=== PATIENT | male | born 1955 | race Caucasian/White ===

== ENCOUNTER → 2016-08-23 | Outpatient (CLI) | payer OTHER ==
[~2016-08-23] MED LIST: ATARAX PO; AUGMENTIN875 MG PO; AZOR 10-40 MG1 UDTAB PO; COREG3.125 MG PO; COREG6.25 MG PO; GABAPENTIN300 M2 PO; MELOXICAM15 MG PO; MULTI VITAMIN1 EACH PO; MULTIVITAMINS1 EAC3 PO; NEURONTIN300 MG PO; POTASSIUM CHLO20 ME2 PO
--- NOTE | ~2016-08-23 | CT55 ---
[facility] A Service of [facility] & [facility] RADIOLOGY TEXT RESULTS PATIENT: LEXUS DUGAN [facility] 54 UNIT #: [id number] AGE: [address]: Napoleon Fowler MD SEX: M ORDER DR: [id number] [facility] [address] [place], [place] [address] [id number] O MR#: [id number] Acc #: [id number] NAME: LEXUS DUGAN : 1955 SEX: M STUDY DATE/TIME: 08/23/2016 8:34 UNIT: [facility] ROOM: STUDY DESCRIPTION: CT Chest W Con Attending Physician: Napoleon Fowler M.D. Referring Physician: Napoleon Fowler M.D. Ordering Physician: Napoleon Fowler M.D. Primary Care Physician: Raffy Berkowitz M.D. MEDICAL IMAGING REPORT This report is preliminary unless electronic signature is present EXAM CT chest with contrast HISTORY Followup lung mass, incidental mass noted on the CT angiogram, 02/18/[address] angiogram chest 02/18/[address] chest without contrast 06/04/2016. The CT exam was performed with one or more of the following radiation dose reduction techniques: automatic exposure control, adjustment of mA and/or kV according to patient size, and iterative reconstruction. FINDINGS Axial images performed through the chest following IV contrast. Sagittal and coronal reconstructed images reviewed at a workstation. Examination demonstrates a right upper lobe cavitary mass measuring about 2.5 x 3.7 x 3.8 cm in greatest transverse dimensions. Air-fluid level noted within the mass. There is some surrounding scarring and fibrosis. The mass is not appreciably changed in size when compared to the patient's study from February 2016. There may be some increase in air. Differential would include both infectious, inflammatory and neoplastic processes though stability would make a neoplastic process less likely. There is background emphysema. There is a stable noncalcified nodule right middle lobe measuring about 5 mm. There is a small calcified granuloma left lower lobe. Small lung cyst also noted in the periphery of the left lower lobe measuring about 2.7 cm. Mild tracheobronchomegaly. Borderline dilatation of the aortic root at 4 cm. No dissection. Coronary artery calcifications noted. Pulmonary arteries unremarkable. [facility]. [facility] A Service of [facility] RADIOLOGY TEXT RESULTS PATIENT: LEXUS DUGAN LOCATION: [facility] : 53 UNIT #: [id number] AGE: [address]: Napoleon Fowler MD SEX: M ORDER DR: There are densely calcified left hilar lymph nodes compatible with prior granulomas disease. Upper abdomen remarkable for fatty liver. The adrenal glands unremarkable. There is a small cyst upper pole left kidney. Thoracic spine, thoracic inlet unremarkable. IMPRESSION 1. Right upper lobe cavitary lesion along the posterior aspect of the right upper lobe and extending towards the pleural space. The mass is not significantly changed in size, though there does appear to be more air or increasing central cavitation. Stability would favor an inflammatory or less likely infectious process. Neoplasm considered unlikely given the stability since February 2016. 2. Moderate centrilobular emphysema. 3. Stable noncalcified right middle lobe nodule. Dictated by... Dontae Cardenas M.D. THIS IS AN ELECTRONICALLY VERIFIED REPORT Dontae Cardenas M.D. at 08/23/2016 4:56 PM Mio TD: 08/23/2016 11:43 JOB #: [id number] MEDICAL IMAGING REPORT Page 1 of 1 COPY
[2016-08-23 10:11] LABS: POC - CREATININE 0.85 mg/dL (0.64-1.27); POC - GFR >60.0 mL/min (>60)
== END | disposition home or self-care (01) ==
LOC: CCAT 07:38
PROVIDERS: Internal Medicine
DX: R91.8 Other nonspecific abnormal finding of lung field (principal); J43.2 Centrilobular emphysema
CPT/HCPCS: 71260; 82565; Q9967

== ENCOUNTER → 2016-09-08 | Outpatient (CLI) | payer OTHER ==
--- NOTE | ~2016-09-08 | CR94 ---
[facility] A Service of [facility] RADIOLOGY TEXT RESULTS PATIENT: LEXUS DUGAN LOCATION: [facility] : 53 UNIT #: [id number] AGE: [address]: Raffy Berkowitz MD SEX: M ORDER DR: [id number] [address] [address] [id number] O MR#: [id number] Acc #: [id number] NAME: LEXUS DUGAN : 1955 SEX: M STUDY DATE/TIME: 09/08/2016 3:28 UNIT: [facility] ROOM: STUDY DESCRIPTION: CR Elbow Min 3 Views Rt Attending Physician: Raffy Berkowitz M.D. Ordering Physician: Raffy Berkowitz M.D. Primary Care Physician: Raffy Berkowitz M.D. MEDICAL IMAGING REPORT This report is preliminary unless electronic signature is present EXAMINATION 3 views of the right elbow. DATE 09/08/2016 HISTORY Right elbow pain and swelling posteriorly for 3 weeks. No known injury. Olecranon bursitis. COMPARISON None. FINDINGS There is marked posterior elbow soft tissue thickening up to 2 cm thickness. Posterior olecranon spur is present. There is mild spurring of the radial head. No acute fracture or joint dislocation is seen. IMPRESSION 1. Degenerative spurring of the radial head and the posterior olecranon. 2. Marked posterior elbow soft tissue swelling in keeping with his stated history of olecranon bursitis. 3. No acute osseous abnormality. Dictated by... Kera Interiano M.D. THIS IS AN ELECTRONICALLY VERIFIED REPORT Kera Interiano M.D. at 09/08/2016 10:05 PM YASH/yevgeniy TD: 09/08/2016 09:58 JOB #: [id number] [facility] A Service of [facility] RADIOLOGY TEXT RESULTS PATIENT: LEXUS DUGAN LOCATION: [facility] : 53 UNIT #: [id number] AGE: [address]: Raffy Berkowitz MD SEX: M ORDER DR: MEDICAL IMAGING REPORT Page 1 of 1 COPY
== END | disposition home or self-care (01) ==
LOC: CRAD 03:23
DX: M71.521 Other bursitis, not elsewhere classified, right elbow (principal); M19.021 Primary osteoarthritis, right elbow; M79.89 Other specified soft tissue disorders
CPT/HCPCS: 73080

== ENCOUNTER 2016-09-15 08:25 | Emergency (ER) | payer OTHER ==
[~2016-09-15 08:25] MED LIST changes: -COREG3.125 MG PO; -GABAPENTIN300 M2 PO; -MELOXICAM15 MG PO; -MULTIVITAMINS1 EAC3 PO; -POTASSIUM CHLO20 ME2 PO
== END 2016-09-15 09:10 | disposition home or self-care (01) ==
LOC: CFTX 08:25 → CED 08:25 → CFTX 08:52
DX: M70.21 Olecranon bursitis, right elbow (principal); I11.0 Hypertensive heart disease with heart failure; I50.9 Heart failure, unspecified; F17.290 Nicotine dependence, other tobacco product, uncomplicated
CPT/HCPCS: 99282

== ENCOUNTER 2016-09-20 22:26 | Emergency (ER) | payer OTHER ==
--- NOTE | ~2016-09-20 | EKG ---
PATIENT: LEXUS DUGAN UNIT #: [id number] Ventricular Rate: 81 BPM Atrial Rate: 81 BPM P-R Interval: 136 ms QRS Duration: 94 ms Q-T Interval: 426 ms QTC Calculation(Bezet): 494 ms P [place]: 78 degrees Calculated R [place]: 78 degrees Calculated T [place]: 69 degrees Diagnosis Line: Normal sinus rhythm Diagnosis Line: Possible Left atrial enlargement Diagnosis Line: Prolonged QT Diagnosis Line: Abnormal ECG Diagnosis Line: When compared with ECG of 20-FEB-2016 05:57, Diagnosis Line: No significant change was found Diagnosis Line: Confirmed by SKY DO MD ([id number]) on Diagnosis Line: 09/21/2016 1:32:15 PM INTERPRETING MD: ERNESTINA VARGAS
--- NOTE | ~2016-09-20 | CR72 ---
[facility] A Service of [facility] & [facility] RADIOLOGY TEXT RESULTS PATIENT: LEXUS DUGAN LOCATION: [facility] : 54 UNIT #: [id number] AGE: [address]: JOEL Huerta Doctor SEX: M ORDER DR: [id number] [facility] [address] [place], [place] [address] [id number] E MR#: [id number] Acc #: [id number] NAME: LEXUS DUGAN : 1955 SEX: M STUDY DATE/TIME: 09/20/2016 22:53 UNIT: [facility] ROOM: STUDY DESCRIPTION: CR Chest Single View Portable Attending Physician: Er Doctor Bradley Ordering Physician: Ed Jero Pham M.D. Primary Care Physician: Raffy Berkowitz M.D. MEDICAL IMAGING REPORT This report is preliminary unless electronic signature is present EXAM Portable chest 09/20/2016 at 22:53 INDICATION Shortness of air tonight. Lung mass. FINDINGS AP portable chest compared with 02/17/2016 as well as chest CT from 08/23/2016. Cardiac and mediastinal contours are normal. Granulomatous calcification noted in the left hilum. There is a small pulmonary cyst at the left base. There is a partially obscured cavitary lesion in the right upper lobe which is seen on prior imaging. No pneumothorax. IMPRESSION No acute findings in the chest. Patient has a known cavitary lesion in the right upper lobe better seen by the patient's prior CT. This partially obscured on the current study. No new findings in the chest. Dictated by... Blake Alexander Jr., M.D. THIS IS AN ELECTRONICALLY VERIFIED REPORT Blake Alexander Jr., M.D. at 09/21/2016 6:01 AM EMILY/marv TD: 09/21/2016 03:46 JOB #: [id number] MEDICAL IMAGING REPORT Page 1 of 1 COPY
== END 2016-09-21 00:03 | disposition left against medical advice (07) ==
LOC: CED 22:26
DX: Z53.21 Procedure and treatment not carried out due to patient leaving prior to being seen by health care provider (principal); Z88.0 Allergy status to penicillin
CPT/HCPCS: 71010

== ENCOUNTER 2016-10-18 19:29 | Emergency (ER) | payer OTHER ==
--- NOTE | ~2016-10-18 | CR72 ---
[facility] A Service of [facility] & [facility] RADIOLOGY TEXT RESULTS PATIENT: LEXUS DUGAN LOCATION: [facility] : 53 UNIT #: [id number] AGE: [address]: Rosangela Pickard MD SEX: M ORDER DR: [id number] [facility] [address] [place], [place] [address] [id number] E MR#: [id number] Acc #: [id number] NAME: LEXUS DUGAN : 1955 SEX: M STUDY DATE/TIME: 10/18/2016 20:44 UNIT: [facility] ROOM: STUDY DESCRIPTION: CR Chest Single View Portable Attending Physician: Rosangela Pickard M.D. Ordering Physician: Rosangela Pickard M.D. Primary Care Physician: Raffy Berkowitz M.D. MEDICAL IMAGING REPORT This report is preliminary unless electronic signature is present EXAM Portable chest 10/18. INDICATION Shortness of air, weakness, nausea and vomiting for 1 week. History of smoking. FINDINGS AP portable chest compared with 09/21/16. Cardiac and mediastinal contours are normal. Granulomatous calcifications noted in the lungs and left hilum. There is emphysema. No acute infiltrates. No pneumothorax. IMPRESSION Emphysema and old granulomatous disease. No acute findings in the chest. Dictated by... Blake Alexander Jr., M.D. THIS IS AN ELECTRONICALLY VERIFIED REPORT Blake Alexander Jr., M.D. at 10/19/2016 10:05 AM EMILY/brian TD: 10/19/2016 08:42 JOB #: [id number] MEDICAL IMAGING REPORT Page 1 of 1 COPY
--- NOTE | ~2016-10-18 | EKG ---
PATIENT: LEXUS DUGAN UNIT #: [id number] Ventricular Rate: 74 BPM Atrial Rate: 74 BPM P-R Interval: 148 ms QRS Duration: 92 ms Q-T Interval: 426 ms QTC Calculation(Bezet): 472 ms P [place]: 82 degrees Calculated R [place]: 85 degrees Calculated T [place]: 74 degrees Diagnosis Line: Normal sinus rhythm Diagnosis Line: Normal ECG Diagnosis Line: When compared with ECG of 20-SEP-2016 22:27, Diagnosis Line: No significant change was found Diagnosis Line: Confirmed by KT SCHROEDER MD ([id number]) on Diagnosis Line: 10/19/2016 9:13:06 PM INTERPRETING MD: BABAK
[2016-10-18 20:18] LABS: URINE SOURCE CLEAN CATCH
[2016-10-18 20:28] LABS: URINE APPEARANCE CLEAR; URINE BILIRUBIN NEG (NEG); URINE BLOOD NEG (NEG); URINE COLOR YELLOW; URINE GLUCOSE NEG (NEG); URINE KETONE NEG (NEG); URINE LEUKOCYTE ESTERASE NEG (NEG); URINE NITRATE NEG (NEG); URINE PH 6.5 (5-8); URINE PROTEIN NEG (NEG); URINE SPECIFIC GRAVITY 1.007 (1.003-1.035)
[2016-10-18 20:29] LABS: BASOPHIL% 0.4 % (0-2.5); EOSINOPHIL% 0.7 % (0.0-7.0); HEMATOCRIT 35.8 % (38.0-50.0); LYMPHOCYTE# 2.6 X10e3 (1.0-3.5); LYMPHOCYTE% 59.3 % (17.0-45.0); MEAN CELL VOLUME 99.1 FL (83-96); MEAN CORPUSCULAR HEMOGLOBIN 33.2 PG (28-34); MEAN CORPUSCULAR HGB CONC 33.6 g/dL (30-36); MONOCYTE# 0.4 X10e3 (0-1.0); MONOCYTE% 10.2 % (3.0-12.0); NEUTROPHIL# 1.3 X10e3 (1.5-7.1); NEUTROPHIL% 29.4 % (40-75); PLATELET COUNT 159 X10e3 (140-420); RED BLOOD COUNT 3.61 X10e (3.90-5.60); WHITE BLOOD COUNT 4.4 X10e3 (4.0-10.5)
[2016-10-18 20:31] LABS: DIFF IND YES
[2016-10-18 20:41] LABS: AMPHETAMINE NEG (NEG); BARBITURATES NEG (NEG); BENZODIAZEPINES NEG (NEG); COCAINE NEG (NEG); MARIJUANA NEG (NEG); OPIATES NEG (NEG); TRICYCLIC ANTIDEPRESSANTS NEG (NEG); U METHADONE NEG (NEG)
[2016-10-18 20:44] LABS: PLATELET ESTIMATE NORMAL (NORMAL); RBC NORMAL YES
[2016-10-18 20:47] LABS: CULTURE INDICATED? NO
[2016-10-18 20:48] LABS: ALBUMIN SERUM 3.7 g/dL (3.5-5.0); BILIRUBIN, DIRECT 0.1 mg/dL (0.0-0.2); BILIRUBIN,INDIRECT 0.6 mg/dL (0.0-0.9); BILIRUBIN,TOTAL 0.7 mg/dL (0.2-2.0); BUN/CREATININE RATIO 8.75; CALCIUM SERUM 8.3 mg/dL (8.4-10.2); CREATININE SERUM 0.8 mg/dL (0.6-1.4); GLOM FILT RATE Estimated 95.8 mL/min (>60); PROTEIN TOTAL SERUM 7.1 g/dL (6.0-8.3)
[2016-10-18 21:06] LABS: POTASSIUM 2.9 mmol/L (3.5-5.1)
[2016-10-18 21:59] LABS: POC - CKMB <1.0 ng/mL (0.0-7.9); POC - TROPONIN <0.05 ng/mL (<=0.05)
== END 2016-10-18 22:00 | disposition home or self-care (01) ==
LOC: CED 19:29
PROVIDERS: Emergency Medicine
DX: N39.0 Urinary tract infection, site not specified (principal); R41.82 Altered mental status, unspecified; I10 Essential (primary) hypertension; Z88.0 Allergy status to penicillin
CPT/HCPCS: 36415; 71010; 80048; 80076; 80307; 81003; 82150; 82553; 83690; 84484; 85025; 93005; 96361; 96374; 99285; G0480; J2405

== ENCOUNTER 2016-11-24 18:22 | Emergency (ER) | payer OTHER ==
[~2016-11-24] VITALS: Ht 180.3 cm; Wt 61.2 kg
--- NOTE | ~2016-11-24 | EKG ---
PATIENT: LEXUS DUGAN UNIT #: [id number] Ventricular Rate: 95 BPM Atrial Rate: 95 BPM P-R Interval: 98 ms QRS Duration: 86 ms Q-T Interval: 396 ms QTC Calculation(Bezet): 497 ms P [place]: 49 degrees Calculated R [place]: 74 degrees Calculated T [place]: 77 degrees Diagnosis Line: Sinus rhythm with short DC Diagnosis Line: Otherwise normal ECG Diagnosis Line: When compared with ECG of 18-OCT-2016 19:57, Diagnosis Line: DC interval has decreased Diagnosis Line: Confirmed by SKY DO MD ([id number]) on Diagnosis Line: 11/26/2016 7:30:01 AM INTERPRETING MD: ERNESTINA VARGAS
--- NOTE | ~2016-11-24 | CR72 ---
[facility] A Service of [facility] & [facility] RADIOLOGY TEXT RESULTS PATIENT: LEXUS DUGAN LOCATION: [facility] : 53 UNIT #: [id number] AGE: [address]: Davonte Rosario MD SEX: M ORDER DR: [id number] [facility] [address] [place], [place] [address] [id number] E MR#: [id number] Acc #: [id number] NAME: LEXUS DUGAN : 1955 SEX: M STUDY DATE/TIME: 11/24/2016 20:00 UNIT: [facility] ROOM: STUDY DESCRIPTION: CR Chest Single View Portable Attending Physician: Davonte Rosario M.D. Ordering Physician: Blake Dozier M.D. Primary Care Physician: Raffy Berkowitz M.D. MEDICAL IMAGING REPORT This report is preliminary unless electronic signature is present EXAM Portable chest. HISTORY Shortness of air today. FINDINGS Cardiac size and pulmonary vascularity are normal. Bilateral emphysema. Mild scattered linear scarring in the right upper lobe. Calcified left hilar node. IMPRESSION Emphysema. No active disease. Dictated by... Enrike Serrano M.D. THIS IS AN ELECTRONICALLY VERIFIED REPORT Enrike Serrano M.D. at 11/25/2016 11:03 PM DFKrystal/yevgeniy TD: 11/25/2016 05:54 JOB #: [id number] MEDICAL IMAGING REPORT Page 1 of 1 COPY
[2016-11-24 19:32] LABS: URINE SOURCE CLEAN CATCH
[2016-11-24 19:37] LABS: BASOPHIL% 0.3 % (0-2.5); HEMATOCRIT 35.6 % (38.0-50.0); HEMOGLOBIN 12.1 gm/dL (13.0-16.0); LYMPHOCYTE# 0.6 X10e3 (1.0-3.5); LYMPHOCYTE% 9.5 % (17.0-45.0); MEAN CELL VOLUME 96.5 FL (83-96); MEAN CORPUSCULAR HEMOGLOBIN 32.9 PG (28-34); MEAN CORPUSCULAR HGB CONC 34.1 g/dL (30-36); MEAN PLATELET VOLUME 8.1 FL (6.5-11.5); MONOCYTE# 0.6 X10e3 (0-1.0); MONOCYTE% 10.9 % (3.0-12.0); NEUTROPHIL# 4.6 X10e3 (1.5-7.1); NEUTROPHIL% 79.3 % (40-75); PLATELET COUNT 175 X10e3 (140-420); RED BLOOD COUNT 3.69 X10e (3.90-5.60); RED CELL DISTRIBUTION WIDTH 14.5 % (11.0-15.5); WHITE BLOOD COUNT 5.8 X10e3 (4.0-10.5)
[2016-11-24 19:38] LABS: DIFF IND NO
[2016-11-24 19:42] LABS: URINE APPEARANCE CLEAR; URINE BLOOD NEG (NEG); URINE COLOR DK YELLOW; URINE GLUCOSE NEG (NEG); URINE KETONE 1+ (NEG); URINE LEUKOCYTE ESTERASE 1+ (NEG); URINE NITRATE POS (NEG); URINE PROTEIN 1+ (NEG); URINE SPECIFIC GRAVITY 1.025 (1.003-1.035); URINE UROBILINOGEN 0.2 MG/DL (NEG)
[2016-11-24 19:44] LABS: URINE BACTERIA AUWI NEG (NEGATIVE); URINE SQUAMOUS EPITHELIAL CELL OCC /[HPF]
[2016-11-24 19:51] LABS: POC - CKMB <1.0 ng/mL (0.0-7.9); POC - TROPONIN <0.05 ng/mL (<=0.05)
[2016-11-24 19:51] LABS: URINE BILIRUBIN NEG (NEG)
[2016-11-24 19:56] LABS: ALBUMIN SERUM 4.1 g/dL (3.5-5.0); ALKALINE PHOSPHATASE 148 U/L (32-92); ALT (SGPT) 72 U/L (10-40); AST (SGOT) 248 U/L (10-42); BILIRUBIN, DIRECT 0.7 mg/dL (0.0-0.2); BILIRUBIN,INDIRECT 1.7 mg/dL (0.0-0.9); BILIRUBIN,TOTAL 2.4 mg/dL (0.2-2.0); BLOOD UREA NITROGEN 10 mg/dL (9-23); BUN/CREATININE RATIO 7.69; CALCIUM SERUM 8.2 mg/dL (8.4-10.2); CARBON DIOXIDE 24 mmol/L (22-31); CHLORIDE 100 mmol/L (100-111); CREATININE SERUM 1.3 mg/dL (0.6-1.4); GLOM FILT RATE Estimated 58.5 mL/min (>60); GLUCOSE FASTING 108 mg/dL (70-110); PROTEIN TOTAL SERUM 7.9 g/dL (6.0-8.3); SODIUM 140 mmol/L (135-145)
[2016-11-24 19:57] LABS: ALCOHOL BLOOD <5 mg/dL ([, 0]); POTASSIUM 2.8 mmol/L (3.5-5.1)
[2016-11-24 20:13] LABS: BARBITURATES NEG (NEG); TRICYCLIC ANTIDEPRESSANTS NEG (NEG); U METHADONE NEG (NEG)
[2016-11-24] MEDS ORDERED: GABAPENTIN300 M2 PO (22:54)
[2016-11-24] MEDS ORDERED: COREG3.125 MG PO (22:54)
[2016-11-24] MEDS ORDERED: MULTI VITAMIN1 EACH PO (22:55)
== END 2016-11-25 05:45 | disposition home or self-care (01) ==
LOC: CED 18:22
PROVIDERS: Emergency Medicine
DX: E87.6 Hypokalemia (principal); F10.239 Alcohol dependence with withdrawal, unspecified; I10 Essential (primary) hypertension; I48.91 Unspecified atrial fibrillation; F17.200 Nicotine dependence, unspecified, uncomplicated; Z88.0 Allergy status to penicillin; Z79.899 Other long term (current) drug therapy
CPT/HCPCS: 36415; 71010; 80048; 80076; 80307; 81003; 82553; 84484; 85025; 93005; 96374; 99285; G0480; J3360

== ENCOUNTER 2016-12-12 12:32 | Emergency (ER) | payer OTHER ==
[~2016-12-12] VITALS: Ht 180.3 cm; Wt 63.4 kg
--- NOTE | ~2016-12-12 | HP ---
Unit #: [id number] #: [id number] Patient: LEXUS DUGAN [id number] [address] [place], [place] [address] [id number] I MR#: [id number] NAME: LEXUS DUGAN ROOM: [address] Age: 61 Sex: M Admission Date: 12/12/2016 : 1955 Attending Physician: Luz Jeffrey M.D. Primary Care Physician: Raffy Berkowitz M.D. HISTORY AND PHYSICAL CHIEF COMPLAINT Weakness worsening today. HISTORY OF PRESENT ILLNESS The patient is a 61-year-old male with a past medical history of alcohol abuse, paroxysmal atrial fibrillation, right upper lobe mass, hypertension, and neuropathy, who presented to the emergency department for evaluation of the above. The patient states that he has had a two-week history of increasing generalized weakness. He states that he fell today when he was standing up from the toilet. He states that he felt somewhat lightheaded. He denies any fever, no chest pain, and no cough or cold symptoms. He states that he has had diarrhea. He reports one bout of nonbloody diarrhea within the past 24 hours. He also noticed blood in his urine. In the emergency department, initial pulse and blood pressure were 86 and 143/103, respectively. CT of the head was done and showed nothing acute. Chest x-ray showed nothing acute. Urinalysis showed findings concerning for urinary tract infection. He is a daily drinker. He received a rally pack, as well as 50 mg of Librium in the emergency department. Additionally, he received a 500 mL normal saline bolus, as well as a gram of Rocephin. He is being admitted to [facility] for evaluation and further treatment. PAST MEDICAL HISTORY 1. Admission to [facility] February 16-2015, for syncope. Per the Discharge Summary, he was seen in consultation by Cardiology. He was noted to have atrial fibrillation with rapid ventricular response and was started on sotalol. He also was found to have a lung mass. He underwent bronchoscopy with no endobronchial lesion seen. He was discharged home on Augmentin and was supposed to follow up as an outpatient. Specifically, he was to get a CT of the chest. It appears that he did have a CT of the chest on August 23, 2016, that showed right upper lobe cavitary lesion not significantly changed in size favoring inflammatory or less likely infectious process. Neoplasm was considered unlikely. 2. Lung mass followed by Dr. Fowler with most recent CT of the chest on August 23 with results as noted above. 3. Paroxysmal atrial fibrillation maintained on sotalol, followed by Dr. Perkins. 4. Hypertension. 5. Neuropathy. Unit #: [id number] #: [id number] Patient: LEXUS DUGAN PAST SURGICAL HISTORY 1. Bronchoscopy. 2. Cardiac catheterization (no records). 3. Toe surgery. SOCIAL HISTORY The patient is a daily drinker. He used to drink mixed drinks daily, but he states that he has cut back and now typically drinks several beers daily. He is a former smoker. He currently smokes e-cigarettes. He lives with his grandchildren. He has a cane. FAMILY HISTORY Notable for his dad having stomach malignancy. ALLERGIES Penicillin. HOME MEDICATIONS 1. Potassium 20 mEq daily. 2. Coreg 3.125 mg twice daily. 3. Meloxicam 15 mg daily. 4. Multivitamin daily. 5. Gabapentin 300 mg twice daily. REVIEW OF SYSTEMS A complete review of systems is negative except as indicated in the History of Present Illness. PHYSICAL EXAMINATION VITAL SIGNS: Temperature is 97.4, pulse 86, respirations 18, blood pressure 143/103, and oxygen saturation 98% on room air. GENERAL: Patient is an male who is sleeping but wakes to voice. HEENT: Head is atraumatic. Mucous membranes are moist. NECK: Supple. Trachea is midline. CARDIOVASCULAR: Regular rate and rhythm. LUNGS: Clear to auscultation bilaterally with no increased work of breathing. ABDOMEN: Soft and nontender with bowel sounds present in all four quadrants. EXTREMITIES: Nontender with no pedal edema. NEUROLOGIC: Patient is sleeping but wakes to voice. He is oriented x3. He follows commands. He is moving all extremities. PSYCHIATRIC: Mood and affect are normal. Patient is cooperative. SKIN: Skin of examined areas is warm and dry. DIAGNOSTIC STUDIES LABORATORY: Complete blood count notable for hemoglobin and hematocrit of 10.9 and 32.1, respectively, MCV is 98.1, and RDW is 16. Urinalysis notable for 1+ leukocyte esterase, positive nitrite, 2+ protein, enumerable red blood cells, 3+ blood, 5-10 white blood cells, and negative for bacteria. INR is 1.4. Ammonia level is 27. Lactic acid is 2.2. Comprehensive metabolic panel notable for calcium of 8, AST and ALT are 351 and 76, respectively, and alkaline phosphatase is 170. Troponin is less than 0.05. IMAGING: Chest x-ray shows nothing acute. CT of the head shows nothing acute. Unit #: [id number] #: [id number] Patient: LEXUS DUGAN CARDIOLOGY: EKG shows normal sinus rhythm with a rate of 80 beats per minute. ASSESSMENT The patient is a 61-year-old male with: 1. Altered mental status. The patient was somewhat confused initially. However, at the time of my evaluation he is oriented x3. 2. General weakness. 3. Syncope. 4. Urinary tract infection. There are no urine cultures in [facility] for review. He received Rocephin in the emergency department. 5. Microcytic anemia. The patient's hemoglobin was 12.1 on November 24, 2016. It is 10.9 today. 6. Transaminitis likely secondary to alcohol abuse. 7. Alcohol abuse. The patient received a rally pack in the emergency department, as well as Librium. 8. Paroxysmal atrial fibrillation. He was discharged home on sotalol. He appears that he is now taking Coreg. He is currently rate controlled. He is not on chronic anticoagulation. 9. Right upper lobe mass demonstrating stability on most recent CT (August 23, 2016), followed by Dr. Fowler. 10. Hypertension. 11. Neuropathy. 12. Former smoker. PLAN 1. Admit for observation to intermediate level. 2. Healthy-heart diet if passes bedside swallow. 3. TSH, B12, and folate. 4. Neuro checks. 5. Bedrest. 6. Fall precautions. 7. PT/OT to evaluate and treat. 8. A 2D echo if not done within the past year. 9. Serial cardiac enzymes. 10. Orthostatics every shift. 11. Blood cultures x2. 12. Urine culture and sensitivity on urine in the lab. 13. Rocephin 1 gram IV daily pending results of urine culture. 14. Alcohol withdrawal protocol. 15. Check magnesium level. 16. Librium 25 mg p.o. q.6 hours. 17. manager manufacturing/social work consult regarding alcohol abuse. 18. Repeat labs in the morning including INR and magnesium. 19. Potassium/magnesium protocol. 20. SCDs for DVT prophylaxis. 21. Additional workup and consultants based on above. 1. Dictated by Luz Jeffrey M.D. AW/kristi TD: 12/12/2016 17:42 JOB #: [id number] Unit #: [id number] #: [id number] Patient: LEXUS DUGAN HISTORY AND PHYSICAL Page 1 of 1 X Luz Jeffrey MD X HISTORY AND PHYSICAL
--- NOTE | ~2016-12-12 | EKG ---
PATIENT: LEXUS DUGAN UNIT #: [id number] Ventricular Rate: 80 BPM Atrial Rate: 80 BPM P-R Interval: 138 ms QRS Duration: 86 ms Q-T Interval: 418 ms QTC Calculation(Bezet): 482 ms P [place]: 65 degrees Calculated R [place]: 74 degrees Calculated T [place]: 74 degrees Diagnosis Line: Normal sinus rhythm Diagnosis Line: Possible Left atrial enlargement Diagnosis Line: Prolonged QT Diagnosis Line: Abnormal ECG Diagnosis Line: When compared with ECG of 24-NOV-2016 19:31, Diagnosis Line: HI interval has increased Diagnosis Line: Confirmed by GABINO BUSTOS MD ([id number]) on 12/14/2016 Diagnosis Line: 10:53:09 PM INTERPRETING MD: JULI VARGAS
--- NOTE | ~2016-12-12 | CT71 ---
[facility] A Service of [facility] RADIOLOGY TEXT RESULTS PATIENT: LEXUS DUGAN LOCATION: [facility] 564-01 : 53 UNIT #: [id number] AGE: [address]: Adonis Figueroa MD SEX: M ORDER DR: [id number] [address] [address] [id number] E MR#: [id number] Acc #: [id number] NAME: LEXUS DUGAN : 1955 SEX: M STUDY DATE/TIME: 12/12/2016 13:19 UNIT: [facility] ROOM: STUDY DESCRIPTION: CT Head Wo Contrast Attending Physician: Oleksandr Valenzuela M.D. Ordering Physician: Oleksandr Valenzuela M.D. Primary Care Physician: Raffy Berkowitz M.D. MEDICAL IMAGING REPORT This report is preliminary unless electronic signature is present EXAM CT head without contrast INDICATION Weakness and confusion today. PROCEDURE Unenhanced CT head. This CT examination was performed with one or more of the following radiation dose reduction techniques: automatic exposure control, adjustment of mA and/or kV according to patient size, and iterative reconstruction. COMPARISON None. FINDINGS No acute hemorrhage, abnormal mass effect, extraaxial fluid collection or hydrocephalus. No depressed calvarial fracture. The paranasal sinuses and mastoid air cells are clear. IMPRESSION No acute intracranial findings. Dictated by... Shan Lea M.D. THIS IS AN ELECTRONICALLY VERIFIED REPORT Shan Lea M.D. at 12/13/2016 8:17 AM CYNTHIA/primitivo TD: 12/12/2016 14:20 JOB #: [id number] [facility] A Service of [facility] RADIOLOGY TEXT RESULTS PATIENT: LEXUS DUGAN LOCATION: [facility] 564-01 : 53 UNIT #: [id number] AGE: [address]: Adonis Figueroa MD SEX: M ORDER DR: MEDICAL IMAGING REPORT Page 1 of 1 COPY
--- NOTE | ~2016-12-12 | CR72 ---
[facility] A Service of [facility] & [facility] RADIOLOGY TEXT RESULTS PATIENT: LEXUS DUGAN LOCATION: [facility] 564-01 : 53 UNIT #: [id number] AGE: [address]: Adonis Figueroa MD SEX: M ORDER DR: [id number] [id number] [facility] [place], [place] [address] [id number] E MR#: [id number] Acc #: [id number] NAME: LEXUS DUGAN : 1955 SEX: M STUDY DATE/TIME: 12/12/2016 13:29 UNIT: [facility] ROOM: STUDY DESCRIPTION: CR Chest Single View Portable Attending Physician: Oleksandr Valenzuela M.D. Ordering Physician: Oleksandr Valenzuela M.D. Primary Care Physician: Raffy Berkowitz M.D. MEDICAL IMAGING REPORT This report is preliminary unless electronic signature is present EXAM Portable chest INDICATIONS Weakness and confusion today. PROCEDURE Frontal view chest COMPARISON 11/24/2016 FINDINGS Heart size is unchanged. No dense consolidation, visible pleural fluid or pneumothorax. IMPRESSION No active process Dictated by... Shan Lea M.D. THIS IS AN ELECTRONICALLY VERIFIED REPORT Shan Lea M.D. at 12/13/2016 8:17 AM CYNTHIA/taz TD: 12/12/2016 14:29 JOB #: [id number] MEDICAL IMAGING REPORT Page 1 of 1 COPY
[~2016-12-12 12:32] MED LIST changes: +COREG3.125 MG PO; +GABAPENTIN300 M2 PO
[2016-12-12 13:14] LABS: URINE SOURCE CLEAN CATCH
[2016-12-12] MEDS ORDERED: POTASSIUM CHLO20 ME2 PO (13:15)
[2016-12-12] MEDS ORDERED: COREG3.125 MG PO (13:16)
[2016-12-12] MEDS ORDERED: MULTIVITAMINS1 EAC3 PO (13:16)
[2016-12-12] MEDS ORDERED: MELOXICAM15 MG PO (13:16)
[2016-12-12] MEDS ORDERED: GABAPENTIN300 M2 PO (13:16)
[2016-12-12 13:20] LABS: BASOPHIL# 0.1 X10e3 (0-0.3); BASOPHIL% 1.4 % (0-2.5); DIFF IND NO; EOSINOPHIL# 0.1 X10e3 (0-0.7); HEMATOCRIT 32.1 % (38.0-50.0); HEMOGLOBIN 10.9 gm/dL (13.0-16.0); LYMPHOCYTE# 2.4 X10e3 (1.0-3.5); LYMPHOCYTE% 37.1 % (17.0-45.0); MEAN CELL VOLUME 98.1 FL (83-96); MEAN CORPUSCULAR HEMOGLOBIN 33.3 PG (28-34); MEAN CORPUSCULAR HGB CONC 33.9 g/dL (30-36); MEAN PLATELET VOLUME 7.2 FL (6.5-11.5); MONOCYTE# 0.9 X10e3 (0-1.0); MONOCYTE% 13.4 % (3.0-12.0); NEUTROPHIL% 46.1 % (40-75); PLATELET COUNT 292 X10e3 (140-420); RED BLOOD COUNT 3.28 X10e (3.90-5.60); WHITE BLOOD COUNT 6.6 X10e3 (4.0-10.5)
[2016-12-12 13:21] LABS: URINE APPEARANCE TURBID; URINE BLOOD 3+ (NEG); URINE COLOR RED; URINE GLUCOSE NEG (NEG); URINE KETONE NEG (NEG); URINE LEUKOCYTE ESTERASE 1+ (NEG); URINE NITRATE POS (NEG); URINE PROTEIN 2+ (NEG); URINE SPECIFIC GRAVITY 1.006 (1.003-1.035); URINE UROBILINOGEN 0.2 MG/DL (NEG)
[2016-12-12 13:22] LABS: CULTURE INDICATED? YES; URBCS1 AUWI INNUM /[HPF] (0-2); URINE BACTERIA AUWI NEG (NEGATIVE); URINE SQUAMOUS EPITHELIAL CELL OCC /[HPF]
[2016-12-12 13:46] LABS: INR 1.4; PARTIAL THROMBOPLASTIN TIME 29.2 SECONDS (23.5-31.3); U HYALINE CASTS AUWI 0-2 /[LPF]; URINE BILIRUBIN NEG (NEG)
[2016-12-12 13:59] LABS: ALBUMIN SERUM 3.5 g/dL (3.5-5.0); BILIRUBIN, DIRECT 0.2 mg/dL (0.0-0.2); BILIRUBIN,INDIRECT 0.4 mg/dL (0.0-0.9); BILIRUBIN,TOTAL 0.6 mg/dL (0.2-2.0); BUN/CREATININE RATIO 11.66; CREATININE SERUM 0.6 mg/dL (0.6-1.4); GLOM FILT RATE Estimated 107.8 mL/min (>60); POTASSIUM 3.9 mmol/L (3.5-5.1); PROTEIN TOTAL SERUM 7.1 g/dL (6.0-8.3)
[2016-12-12 14:20] LABS: POC - CKMB <1.0 ng/mL (0.0-7.9); POC - TROPONIN <0.05 ng/mL (<=0.05)
[2016-12-12 15:30] LABS: POC - CKMB <1.0 ng/mL (0.0-7.9); POC - TROPONIN <0.05 ng/mL (<=0.05)
[2016-12-12 17:34] LABS: MAGNESIUM 1.4 mg/dL (1.6-3.0)
[2016-12-12 18:12] LABS: FOLATE (FOLIC ACID) 17.9 ng/mL (>5.8)
[2016-12-12 18:16] LABS: %MB 1.5 % (0.0-4.0)
[2016-12-12 20:13] LABS: ALBUMIN SERUM 3.6 g/dL (3.5-5.0); BILIRUBIN,TOTAL 0.6 mg/dL (0.2-2.0); BUN/CREATININE RATIO 7.27; CALCIUM SERUM 8.2 mg/dL (8.4-10.2); CREATININE SERUM 1.1 mg/dL (0.6-1.4); GLOM FILT RATE Estimated 71.6 mL/min (>60); PROTEIN TOTAL SERUM 7.2 g/dL (6.0-8.3)
[2016-12-13 03:51] LABS: BASOPHIL% 0.6 % (0-2.5); EOSINOPHIL# 0.1 X10e3 (0-0.7); EOSINOPHIL% 1.2 % (0.0-7.0); HEMATOCRIT 27.9 % (38.0-50.0); HEMOGLOBIN 9.4 gm/dL (13.0-16.0); LYMPHOCYTE# 1.8 X10e3 (1.0-3.5); LYMPHOCYTE% 24.4 % (17.0-45.0); MEAN CELL VOLUME 98.7 FL (83-96); MEAN CORPUSCULAR HEMOGLOBIN 33.4 PG (28-34); MEAN CORPUSCULAR HGB CONC 33.9 g/dL (30-36); MEAN PLATELET VOLUME 7.2 FL (6.5-11.5); MONOCYTE# 0.8 X10e3 (0-1.0); NEUTROPHIL# 4.7 X10e3 (1.5-7.1); NEUTROPHIL% 62.8 % (40-75); PLATELET COUNT 257 X10e3 (140-420); RED BLOOD COUNT 2.82 X10e (3.90-5.60); RED CELL DISTRIBUTION WIDTH 15.7 % (11.0-15.5); WHITE BLOOD COUNT 7.5 X10e3 (4.0-10.5)
[2016-12-13 03:52] LABS: DIFF IND NO
[2016-12-13 04:06] LABS: INR 1.3; PARTIAL THROMBOPLASTIN TIME 28.7 SECONDS (23.5-31.3); PROTHROMBIN TIME (PATIENT) 14.3 SECONDS (10.0-11.7)
[2016-12-13 04:25] LABS: CK TOTAL 57 IU/L (36-174)
[2016-12-13 04:30] LABS: ALBUMIN SERUM 3.3 g/dL (3.5-5.0); BUN/CREATININE RATIO 8.75; CALCIUM SERUM 7.9 mg/dL (8.4-10.2); CREATININE SERUM 0.8 mg/dL (0.6-1.4); GLOM FILT RATE Estimated 95.8 mL/min (>60); POTASSIUM 3.8 mmol/L (3.5-5.1); PROTEIN TOTAL SERUM 6.8 g/dL (6.0-8.3)
== END 2016-12-13 15:08 | disposition home or self-care (01) ==
LOC: CED 12:32 → CEDOF 16:30 → CED 16:51 → C5C 18:15 → CEDOF 18:15 → C5C 12-13 07:25
PROVIDERS: Emergency Medicine; Family Medicine
DX: R53.1 Weakness (principal); R41.82 Altered mental status, unspecified; R55 Syncope and collapse; I48.0 Paroxysmal atrial fibrillation; I10 Essential (primary) hypertension; N39.0 Urinary tract infection, site not specified; D50.9 Iron deficiency anemia, unspecified; R74.0 Nonspecific elevation of levels of transaminase and lactic acid dehydrogenase [LDH]; F10.10 Alcohol abuse, uncomplicated; G62.9 Polyneuropathy, unspecified; R91.8 Other nonspecific abnormal finding of lung field; Z87.891 Personal history of nicotine dependence; Z88.0 Allergy status to penicillin; Z79.1 Long term (current) use of non-steroidal anti-inflammatories (NSAID); Z79.899 Other long term (current) drug therapy; Z98.890 Other specified postprocedural states
CPT/HCPCS: 36415; 70450; 71010; 80048; 80053; 80076; 81003; 82140; 82550; 82553; 82607; 82746; 82947; 83605; 83735; 84439; 84443; 84484; 85025; 85610; 85730; 86592; 87040; 87086; 87493; 93005; 93306; 96360; 96374; 96375; 96376; 99285; G0378; J0696; J3411; J3475; J7042